=== PATIENT | male | born 1950 ===

== ENCOUNTER 2018-07-12 10:02 | Emergency (ER) | payer MEDICARE ==
[2018-07-12 10:28] VITALS: RESP 16
[2018-07-12] MEDS ORDERED: Naproxen 550 mg Tab PO STA (10:28)
[2018-07-12] MEDS ORDERED: Naproxen 550 mg Tab PO ONE (10:36)
--- NOTE | 2018-07-12 11:21 | C.PDOC ---
History Of Present Illness 68-year-old male presents to the emergency department for evaluation of back pain. Patient states he was going down a ladder yesterday, made a suddent twisting motion and developed pain in his left hip and buttock that radiates down his left leg. Patient states he took an Advil yesterday with minimal relief, prompting ER visit. He denies direct trauma, sensory changes, bladder/ bowel incontinence, urinary retention, sensory changes, or any other associated symptoms. No other complaints at this time. Time Seen by Provider: 07/12/18 10:03 Chief Complaint (Nursing): Lower Extremity Problem/Injury History Per: Patient History/Exam Limitations: no limitations Onset/Duration Of Symptoms: Days Current Symptoms Are (Timing): Still Present Severity: Moderate Past Medical History Reviewed: Historical Data, Nursing Documentation, Vital Signs Vital Signs: Last Vital Signs Temp 98.2 F 07/12/18 11:48 Pulse 62 07/12/18 11:48 Resp 16 07/12/18 11:48 BP 134/60 07/12/18 11:48 Pulse Ox 100 07/12/18 12:42 - Medical History PMH: HTN, Hyperlipidemia Surgical History: Cholecystectomy Family History: States: No Known Family Hx - Social History Hx Alcohol Use: No Hx Substance Use: No Review Of Systems Constitutional: Negative for: Fever, Chills Gastrointestinal: Negative for: Nausea, Vomiting Genitourinary: Negative for: Dysuria, Incontinence, Hematuria Musculoskeletal: Positive for: Back Pain, Leg Pain Neurological: Negative for: Weakness, Numbness Physical Exam - Physical Exam Appears: Well, Non-toxic, No Acute Distress Skin: Normal Color, Warm, Dry, No Rash Eye(s): bilateral: Normal Inspection Oral Mucosa: Moist Neck: Normal, Normal ROM, No Midline Cervical Tenderness, No Paracervical Tenderness, No Step Off Deformity, Supple Cardiovascular: Rhythm Regular Respiratory: Normal Breath Sounds, No Rales, No Rhonchi, No Wheezing Gastrointestinal/Abdominal: Normal Exam, Bowel Sounds, Soft, No Tenderness Back: No CVA Tenderness, No Vertebral Tenderness, Paraspinal Tenderness (lumbar ), Straight Leg Raising (Left) Extremity: Capillary Refill (< 2 sec all digits ), No Deformity, No Swelling, Other (Left lateral hip tendeness without deformity. ) Pulses: Left Dorsalis Pedis: Normal, Right Dorsalis Pedis: Normal Neurological/Psych: Oriented x3, Normal Motor, Normal Sensation Gait: Steady ED Course And Treatment O2 Sat by Pulse Oximetry: 100 (RA) Pulse Ox Interpretation: Normal (RA) - Other Rad XR HIP X-Ray: Viewed By Me, Read By Radiologist (negative for fracture/dislocation.) Progress Note: Xrays of hip/pelvis ordered and reviewed. Patient given PO Naprosyn and Flexeril. Reevaluation Time: 11:30 Reassessment Condition: Improved (Patient reassessed, is resting comfortably, states his pain has improved. Patient is ambulating normally in the ED. Rxs for Naprosyn and Flexeril given. Patient instructed to follow up with PMD in 1- 2 days, and he understands he should return to ED if symptoms worsen.) Disposition Counseled Patient/Family Regarding: Studies Performed, Diagnosis, Need For Followup, Rx Given - Disposition Referrals: Sean Gardner [Staff Provider] - Disposition: HOME/ ROUTINE Disposition Time: 11:30 Condition: STABLE Additional Instructions: FOLLOW UP WITH YOUR DOCTOR IN 1-2 DAYS USE MEDICATIONS DIRECTED RETURN TO EMERGENCY ROOM IF SYMPTOMS WORSEN SEGUIMIENTO CON PEOPLES MDICO EN 1-2 [place] USE MEDICAMENTOS SEGN LO INDICADO REGRESE AL BRITNEY DE EMERGENCIA SI LOS SNTOMAS EMPEORAN Prescriptions: Cyclobenzaprine [Flexeril] 10 mg PO BID PRN #15 tab PRN Reason: Muscle Spasm Naproxen 375 mg PO BID PRN #20 tablet PRN Reason: pain Instructions: Sciatica (DC) Forms: [facility] (Telugu), Work Excuse Print Language: [place] - Clinical Impression Clinical Impression: Left hip pain, Sciatica - Scribe Statement The provider has reviewed the documentation as recorded by the Scribe (Fidelina Thomas) All medical record entries made by the Scribe were at my direction and personally dictated by me. I have reviewed the chart and agree that the record accurately reflects my personal performance of the history, physical exam, medical decision making, and the department course for this patient. I have also personally directed, reviewed, and agree with the discharge instructions and disposition.
--- NOTE | 2018-07-12 11:46 | RAD ---
Date of service: 07/12/2018 PROCEDURE: HISTORY: left hip pain COMPARISON: None TECHNIQUE: AP pelvis and frog's leg view. FINDINGS: Bilateral superolateral hip joint space narrowing with superolateral and inferomedial acetabular spurring. Bilateral L5-S1 facet hypertrophic arthrosis and blending endplate spondylosis No fracture or lytic lesion. SI joints and pubic symphysis unremarkable. A left hemipelvic phleboliths. IMPRESSION: Bilateral hip arthrosis. No fracture or lytic lesion. Bilateral L5-S1 facet hypertrophic arthrosis/spondylosis
[2018-07-12 11:49] VITALS: BP 134/60; PULSE 62; TEMP 98.2
[2018-07-12 12:00] VITALS: O2SAT 100
== END 2018-07-12 11:49 | disposition home or self-care (01) ==
LOC: C.ER 10:02
DX: M54.32 Sciatica, left side (principal); M25.552 Pain in left hip